=== PATIENT | female | born 1960 | race African-American/Black ===

== ENCOUNTER 2023-11-04 18:56 | Emergency (ER) | payer MEDICAID, OTHER ==
[~2023-11-04] VITALS: Ht 167.6 cm; Wt 99.7 kg
[2023-11-04 19:09] VITALS: TEMP 98.7; O2SAT 100
[2023-11-04] MEDS ORDERED: DIPH25CA83 MT (21:12)
[2023-11-04] MEDS ORDERED: P50 MT (21:13)
[2023-11-04] MEDS: DIPHENHYDRAMINE 25MG CAPSULE PO ONE (21:57)
[2023-11-04] MEDS: PREDNISONE 20MG TABLET PO ONE (21:57)
[2023-11-04 22:01] VITALS: BP 124/84; PULSE 89; RESP 13; O2SAT 99
== END 2023-11-04 22:00 | disposition home or self-care (01) ==
LOC: ER 18:56
DX: T78.40XA Allergy, unspecified, initial encounter (principal); X58.XXXA Exposure to other specified factors, initial encounter
CPT/HCPCS: 99283; Q0163; J7512